=== PATIENT | male | born 1995 | race Caucasian/White ===

== ENCOUNTER 2017-09-08 03:02 | Emergency (ER) | payer OTHER ==
[~2017-09-08] VITALS: Ht 177.8 cm; Wt 86.0 kg
[2017-09-08 03:10] VITALS: O2SAT 95
[2017-09-08 03:11] VITALS: TEMP 36.6; Ht 177.8 cm; Wt 86.0 kg
[2017-09-08 03:35] LABS: CALCIUM 9.1 mg/dl (8.5-10.1); CREATININE 1.29 mg/dl (0.60-1.40); POTASSIUM 3.4 mmol/L (3.5-5.1)
[2017-09-08] MEDS ORDERED: CNC/36 PO (03:49)
[2017-09-08 04:08] VITALS: BP 146/97; PULSE 63; O2SAT 97
--- NOTE | 2017-09-08 06:09 | EMERGENCY ROOM VISIT NOTE ---
History First contact with patient: 03:04 Chief Complaint: ALCOHOL OVERDOSE Stated Complaint: ALCOHOL OVERDOSE Nursing Triage Summary: Pt arrived via ambulance BLS. Police called ambulance for the pt to be assessed at the hospital. Pt states that he was walking by a house and saw something that scared him. Pt then ran to the police. Pt states that he was drinking an unknown amount of white liquor tonight. Pt denies any drug use. Pt is AOx2 History of Present Illness The patient is a 21 year old male who presents to the Emergency Room with complaints of alcohol intoxication who saw thing that scared him and then ran into the police. The police had breathalyzed him and he was .199. He had no sober friends. He was then sent to the ER. Patient states he had a lot of alcohol. No drugs. Patient denies chest pain, dyspnea, hallucinations, delusions, abdominal pain or any other medical complaints. Review of Systems An 10 system review of systems was completed with positives and pertinent negatives listed in the HPI. Past Medical/Surgical History None Social History Smoking Status: Never Smoker Smokeless Tobacco Use: No Alcohol Use: occasionally Drug Use: none Occupation Status: [employer] Current/Historical Medications Scheduled Methylphenidate Hcl (Concerta), 36 MG PO DAILY Physical Exam Vital Signs Date Time Temp Pulse Resp B/P (MAP) Pulse Ox O2 Delivery O2 Flow Rate FiO2 09/08/17 04:08 63 18 146/97 97 09/08/17 03:11 36.6 92 20 166/96 98 Room Air 09/08/17 03:10 95 Room Air 09/08/17 03:10 95 Room Air 09/08/17 03:08 90 Physical Exam PHYSICAL EXAM: VITALS: Vitals are noted on the nurse's note and reviewed by myself. Vital signs stable. GENERAL: Pleasant male with EtOH odor, in no acute distress, nondiaphoretic, well-developed well-nourished. The patient is visibly intoxicated. SKIN: The skin was without obvious lacerations, abrasions, or rashes. There is no tenting of the skin. Capillary reflex less than 2 seconds. HEENT: Normocephalic, atraumatic. PERRLA. EOMI. Conjunctiva with mild injection without icterus. Tympanic membranes without erythema or effusion bilaterally no hemotympanum. External auditory canals are clear. Nares patent bilaterally. No epistaxis. Oropharynx without erythema or exudate. Uvula midline. Oral mucosal moist. No lymphadenopathy. Neck is supple without cervical spine tenderness. HEART: Regular rate and rhythm without murmurs gallops or rubs. Peripheral pulses 2+. LUNGS: Clear to auscultation bilaterally without wheezes, rales or rhonchi. ABDOMEN: Positive bowel sounds x 4. Normal tympanic percussion. Soft, nontender, without masses or organomegaly. MUSCULOSKELETAL: Gross motor function of the upper and lower extremities intact. The patient has a staggering gait. NEUROLOGIC: The patient is visibly intoxicated. Once they were more sober they were alert and oriented to person place and time. Medical Decision & Procedures Laboratory Results 09/08/17 03:10 Test 09/08/17 03:10 Anion Gap 11.0 mmol/L (3-11) Est Creatinine Clear Calc Drug Dose 93.5 ml/min Estimated GFR () 91.2 Estimated GFR (Non- 78.7 BUN/Creatinine Ratio 5.2 (10-20) Calcium Level 9.1 mg/dl (8.5-10.1) Ethyl Alcohol mg/dL 201.0 mg/dl (0-3) ED Course Prior records/ancillary studies reviewed. Triage Nursing notes reviewed. Additional history obtained from EMS. The patient's history was concerning for altered mental status and a possible alcohol overdose. Differential diagnosis: Etiologies such as alcohol intoxication, toxicologic, infection, hypoglycemia, electrolyte abnormalities, cardiac sources, intracerebral event, neurologic, as well as others were entertained. Physical examination: As above. The patient is clinically intoxicated. no trauma noted. ER treatment provided: Monitoring Aspiration precautions The patient was frequently reassessed. Diagnostic interpretation by me: Cardiac monitoring did not reveal any evidence of dysrhythmia. The labs revealed hypokalemia. The patient's blood alcohol level was 201 mg/dL. The patient's history was reviewed once they were more coherent and their intoxication cleared. The patient states they have been in good health recently and had no medical complaints. The patient admitted to consuming alcohol. No additional concerning findings were noted. The patient complained of no symptoms to suggest assault. This appears to be consistent with an isolated overdose of alcohol. By the evaluation outlined above emergent etiologies such as trauma, infection, hypoglycemia, electrolyte abnormalities, cardiac sources, intracerebral event, neurologic,as well as others were deemed relatively unlikely. The patient was informed about the findings as listed above. The patient was counseled on the dangers of excessive alcohol use. I gave my usual and customary discussion regarding this issue. All questions were answered and the patient was pleased with the treatment. Return instructions were outlined and the patient was discharged in stable condition once their mental status improved and a safe destination was confirmed. Outpatient prescription management: None Referral: The patient was referred back to their primary care physician for follow-up in 2 to 3 days for a recheck of their current condition. Medical Decision As above Medication Reconcilliation Current Medication List: was personally reviewed by me Blood Pressure Screening Patient's blood pressure: Normal blood pressure Impression Primary Impression: Alcoholic intoxication Additional Impression: Hypokalemia Departure Information Dispostion Home / Self-Care Condition GOOD Referrals No Doctor, Assigned (PCP) Forms HOME CARE DOCUMENTATION FORM, IMPORTANT VISIT INFORMATION Patient Instructions Alcohol Intoxication - [facility], [place], [facility] Additional Instructions Keep well-hydrated. Tylenol every 6 hours as needed for pain (Maximum 3000 mg Tylenol in 24 hr period). Follow up with family doctor and/or health services as needed. No driving for the next 24 hours. Recommend no alcohol for the next 48 hours and avoid binge drinking in the future. Return to ER sooner for chest pain, abdominal pain, worsening signs or symptoms or as needed. Problem Qualifiers Primary Impression: Alcoholic intoxication Complication of substance-induced condition: uncomplicated Qualified Codes: F10.920 - Alcohol use, unspecified with intoxication, uncomplicated
== END 2017-09-08 04:09 | disposition home or self-care (01) ==
LOC: C.EDB 03:04
DX: F10.929 Alcohol use, unspecified with intoxication, unspecified (principal); E87.6 Hypokalemia; Y90.7 Blood alcohol level of 200-239 mg/100 ml